=== PATIENT | male | born 1940 | race Caucasian/White ===

== ENCOUNTER 2017-06-09 00:35 | Inpatient (IN) | payer MEDICARE, BC ==
[~2017-06-09] VITALS: Ht 185.4 cm; Wt 75.7 kg
--- NOTE | 2017-06-09 03:28 | ER ---
ADMIT: 06/09/2017 RM/LOC: [address] [facility] MR#: [id number] [address] PUJA MIREYA E [address] [place] [address] Emergency Room Report SEX: M AGE: 76 : 1940 DATE: 06/09/2017 SUBJECTIVE: The patient is a 76-year-old male with Parkinson disease and dementia. First day at [facility], fell and injured his left knee and hip. Transported by [facility]. Denies any head or neck injury. PAST MEDICAL HISTORY.: ALLERGIES: NONE. MEDICATIONS: Please see nurse's MAR. ILLNESSES: 1. Dementia. 2. Parkinson disease. 3. Constipation. OPERATIONS: 1. Cholecystectomy. 2. Tonsillectomy. REVIEW OF SYSTEMS: Unreliable due to dementia. SOCIAL HISTORY: . Nonsmoker. Nondrinker. No illicit drugs. FAMILY HISTORY: Negative per chart review. PHYSICAL EXAMINATION: VITAL SIGNS: Temperature 98, pulse 67, respirations 18, blood pressure 186/54, SaO2 of 99%. Weight 77.5 kg. GENERAL: No acute distress. Demented stigmata of Parkinson's noted. HEENT: Normocephalic. No evidence of epistaxis, rhinorrhea, or otorrhea. NECK: Supple without lymphadenopathy or thyromegaly. CHEST: Clear. Breath sounds equal without rales, rhonchi, or wheeze. HEART: Regular rate and rhythm without murmur, gallop, or edema. ABDOMEN: Soft, nontender, and nondistended without mass or megaly. Bowel sounds hypoactive. EXTREMITIES: Decreased range of motion, left hip secondary to pain. No external rotation or shortening noted. NEURO: EOMI. PERRLA. Cogwheeling rigidity and pill rolling tremor noted. Mental status, alert and disoriented without delusions or hallucinations. MEDICAL DECISION MAKING: Chest x-ray, negative. Left hip and pelvis shows nondisplaced intertrochanteric hip fracture. Small avulsion, lesser trochanter. Diagnostic blood work pending. Discussed case with Dr. Romo and Dr. Napier. Agreed to routine hip orders by Dr. Napier. ADMIT: 06/09/2017 RM/LOC: 501 [facility] MR#: [id number] [place] [id number] PUJA MIREYA E [address] [place] [address] Emergency Room Report SEX: M AGE: 76 : 1940 DIAGNOSES: 1. Left intertrochanteric hip fracture. 2. Parkinson's disease with associated dementia. RECOMMENDATION: Admit inpatient Med/Surg for Dr. Romo and Dr. Napier. ADMISSION AND DISCHARGE CONDITION: Stable. The patient is a full code. Kwan Bacon MD/ adriel JOB #: [id number] CC: Sean Romo DO, Attending Physician Sean Romo DO, Family Physician DO Suleman Garcia MD
--- NOTE | 2017-06-23 19:45 | OR ---
ADMIT: 06/09/2017 RM/LOC: [address] [facility] MR#: [id number] [address] MIREYA LUO [address] [place] [address] Operative/Delivery Room Report SEX: M AGE: 76 : 1940 SURGERY DATE: 06/09/2017 SURGEON: Suleman Napier MD PREOPERATIVE DIAGNOSIS: Left intertrochanteric hip fracture. POSTOPERATIVE DIAGNOSIS: Left intertrochanteric hip fracture. PROCEDURE PERFORMED: Left trochanteric fixation nailing. CAR CLEANING SUPERVISOR: Lalito Inman PA-C IMPLANTS: TFNA Synthes short with a 105 hip screw and a 42 distal interlock. BLOOD LOSS: 50 mL. COMPLICATIONS: None. INDICATION: Mireya is a 76-year-old male in an assisted living type facility. He has not been walking a whole lot lately, and he has been having some recent fall. He had fallen last night, having a lot of pain, and unable to weight bear. He came to the ER, he had confirmed intertrochanteric hip fracture. After discussion with the family, elected to go ahead and have that fixed, so he is here for that now. DESCRIPTION OF PROCEDURE: The patient was identified in the preoperative holding area. Written informed consent was confirmed. Site was marked. He was brought to the OR, placed supine. General anesthesia was induced, put on the fracture table. Left leg in the fracture boot. The right leg in semi- lithotomy position. We then prepped and draped in the usual sterile fashion. Time-out was performed. Preop antibiotics were confirmed. We had obtained our reduction, confirmed with fluoroscopy and then made about a 2 cm incision proximal to the greater trochanter through the skin and subcutaneous tissue IT band. I put the guide pin down at the tip of the fracture and then it actually slipped right into the fracture and looked like an appropriate placement. So, I then reamed over that and then placed my short nail appropriately placed and then made an incision for the guide pin trocar, put that up against the lateral cortex with my guide pin on the AP and lateral x- ADMIT: 06/09/2017 RM/LOC: [address] [facility] MR#: [id number] [address] [address] MIREYA LUO [address] [place] [address] Operative/Delivery Room Report SEX: M AGE: 76 : 1940 rays. It was very close to center-center. Once I had an appropriate position, measured 105, drilled the lateral cortex and then placed the helical blade. Once this was done, we went down and drilled and placed a distal interlock screw and then placed the locking cap back it off to allow some compression and then removed all the instrumentation, irrigated. After getting my final x-rays, we closed with 0 Vicryl, 2-0 Vicryl, and avery and then put a sterile dressing on. He was extubated, brought to the postoperative care unit in good condition. No complications. Postoperatively, this is a stable fracture with adequate fixation. He does not walk much on it. I will allow him to weightbear as tolerated, and then he will have continued admission for DVT prophylaxis, pain control, and medical management by the medical service who admitted him. Suleman Napier MD/ adriel JOB #: [id number] CC: Sean Romo, Attending Physician Sean Romo, Family Physician
--- NOTE | 2017-06-26 07:55 | HP ---
ADMIT: 06/09/2017 RM/LOC: 501 [facility] MR#: [id number] [id number] [address] PUJAIMREYA [address] [place] [address] History and Physical SEX: M AGE: 76 : 1940 DATE OF SERVICE: 06/09/2017 REASON FOR HOSPITALIZATION: Hip fracture. HISTORY OF PRESENT ILLNESS: A 76-year-old male patient, who was admitted to the [facility], and then yesterday evening and overnight got up on his own, fell, and fractured his hip. He then came to the emergency room. He is being admitted for further surgical repair. PAST MEDICAL HISTORY: He does have a history of dementia, Parkinson's disease, BPH, depression, and recent UTI. CURRENT MEDICATIONS: Include: 1. Carbidopa-levodopa 25/100, two tabs each morning. 2. He takes a multivitamin every day. 3. Hydrochlorothiazide 12.5 mg daily. 4. Zoloft 50 mg p.o. daily. 5. Avodart daily. 6. Aspirin 325 mg daily. 7. Exelon patch at bedtime. 8. Milk of magnesia. 9. Stool softener and then a recent course of Bactrim on an outpatient basis. SOCIAL HISTORY: He is demented. His is cared for him up until just recently when he was admitted to [facility]. He does not smoke or use alcohol. FAMILY HISTORY: Noncontributory. REVIEW OF SYSTEMS: The patient's denies that there have been any major significant mental status changes. He has had no other concerns or complaints. He has had a recent urinary tract infection as noted above. PHYSICAL EXAMINATION: GENERAL: He is pleasant, alert, but really does not contribute to his presenting complaints or conversation. He appears comfortable. VITAL SIGNS: His blood pressure is 158/73, temperature 97, pulse is 66, respirations of 18. HEART: His heart is regular. There is no JVD or bruits. LUNGS: Clear. ABDOMEN: Soft. EXTREMITIES: Reveal no edema. LABORATORY DATA: Urinalysis; 2+ leukocytes. BUN 26, creatinine 1.0, sodium ADMIT: 06/09/2017 RM/LOC: 501 [facility] MR#: [id number] [address] [address] PUJA MIREYA Natalia [address] [place] [address] History and Physical SEX: M AGE: 76 : 1940 136, potassium 3.9. Hemoglobin 13.3, white count 12.2. Chest x-ray, negative. EKG, sinus rhythm. IMPRESSION: 1. Hip fracture. 2. Dementia. 3. Parkinson's disease. 4. Urinary tract infection. PLAN: He is an appropriate surgical candidate. We will continue to monitor and manage his Parkinson's disease and dementia, and cover his urine along with culturing his urine. Sean Romo DO/ adriel JOB #: [id number] CC: Sean Romo, Attending Physician Sean Romo, Family Physician
== END 2017-06-12 13:43 | DRG 481 ==
LOC: ER 00:35 → 5MS 01:30
PROVIDERS: ADMIT Internal Medicine
PROC: 0QS736Z Reposition Left Upper Femur with Intramedullary Internal Fixation Device, Percutaneous Approach (ICD-10-PCS; principal; 2017-06-09)
DX: S72.145A Nondisplaced intertrochanteric fracture of left femur, initial encounter for closed fracture (principal); N39.0 Urinary tract infection, site not specified; G20 Parkinson's disease; I10 Essential (primary) hypertension; F02.80 Dementia in other diseases classified elsewhere, unspecified severity, without behavioral disturbance, psychotic disturbance, mood disturbance, and anxiety; W18.30XA Fall on same level, unspecified, initial encounter; K59.00 Constipation, unspecified; N40.0 Benign prostatic hyperplasia without lower urinary tract symptoms; F32.9 Major depressive disorder, single episode, unspecified; Z79.82 Long term (current) use of aspirin